=== PATIENT | male | born 1960 | race African-American/Black ===

== ENCOUNTER 2018-01-19 16:16 | Emergency (ER) | payer SELFPAY ==
[2018-01-19] MEDS ORDERED: Aspirin 325 MG TAB ONE (16:35)
[2018-01-19] MEDS ORDERED: Nitroglycerin 0.4 MG TAB (25 Tab Bottle) ONE (16:35)
[2018-01-19 16:55] LABS: ALT (SGPT) 23 U/L (8-55); AST (SGOT) 68 U/L (5-34); Albumin 4.4 g/dL (3.5-5.0); Alkaline Phosphatase 97 U/L (40-150); Anion Gap 15 mmol/L (10-20); BUN (Urea Nitrogen) 8 mg/dL (8.4-25.7); Bilirubin, Total 0.7 mg/dL (0.2-1.2); Calc. Creatinine Clearance 0 mL/min (70-130); Calcium 9.9 mg/dL (7.8-10.44); Carbon Dioxide 25 mmol/L (22-29); Chloride 100 mmol/L (98-107); Estimated GFR-MDRD Greater than 90; Globulin 3.9 g/dL (2.4-3.5); Glucose 144 mg/dL (70-105); Potassium 4.4 mmol/L (3.5-5.1); Protein, Total 8.3 g/dL (6.0-8.3); Sodium 136 mmol/L (136-145)
[2018-01-19 17:00] LABS: Eosinophils 3 % (0-10); Hemoglobin 14.8 g/dL (14.0-18.0); Lymphocytes 27 % (21-51); MDiff Complete? YES; Mean Corpuscular Hemoglobin 30.4 pg (27.0-31.0); Mean Corpuscular Volume 95.1 fL (78.0-98.0); Mean Platelet Volume 6.2 fL (7.4-10.4); Monocytes 10 % (0-10); Neutrophil 50 % (42-75); PLT Morphology Comment Appears Increased; Platelet Count 401 thou/uL (130-400); RBC Distribution Width 13.7 % (11.5-14.5); RBC Morphology Normal; Reactive Lymphocytes 10 % (0-10); Red Blood Cell (RBC) Count 4.87 mill/uL (4.70-6.10); White Blood Cell (WBC) Count 9.6 thou/uL (4.8-10.8)
[2018-01-19 17:03] LABS: CKMB 73.3 ng/mL (0-6.6); Troponin I 11.145 ng/mL (< 0.028)
[2018-01-19] MEDS ORDERED: Enoxaparin Sodium 60 MG/0.6 ML SYRINGE ONE (17:41)
[2018-01-19] MEDS ORDERED: Enoxaparin Sodium 30 MG/0.3 ML SYRINGE ONE (17:41)
--- NOTE | 2018-01-19 18:43 | RAD ---
TWO VIEWS OF THE CHEST: 01/19/18 COMPARISON: 01/15/11. HISTORY: Chest pain. FINDINGS: Two views of the chest show normal sized cardiomediastinal silhouette. There is no evidence of consol idation, mass, or pleural effusion. The bones are unremarkable. IMPRESSION: No evidence of acute cardiopulmonary disease. POS: [facility]
== END 2018-01-19 18:08 | disposition short-term general hospital (02) ==
LOC: MADERS 16:16
DX: I21.4 Non-ST elevation (NSTEMI) myocardial infarction (principal); E11.9 Type 2 diabetes mellitus without complications; E78.5 Hyperlipidemia, unspecified; F17.210 Nicotine dependence, cigarettes, uncomplicated; Z79.899 Other long term (current) drug therapy
CPT/HCPCS: 71046; 80053; 82553; 84484; 85025; 93005; 96372; J1650

== ENCOUNTER 2019-01-13 12:11 | Emergency (ER) | payer SELFPAY ==
[2019-01-13 14:13] LABS: #Basophils 0.1 thou/uL (0.0-0.2); #Eosinphils 0.5 thou/uL (0.0-0.7); #Lymphocytes 2.3 thou/uL (1.20-3.40); #Monocytes 0.5 thou/uL (0.11-0.59); #Neutrophils 2.2 thou/uL (1.40-6.50); %Basophils 1.7 % (0.0-1.0); %Eosinophils 9.3 % (0.0-10.0); %Lymphocytes 40.8 % (21.0-51.0); %Monocytes 8.6 % (0.0-10.0); %Neutrophils 39.7 % (42.0-75.0); Hemoglobin 14.4 g/dL (14.0-18.0); Mean Corpuscular HGB CONC 30.1 g/dL (32.0-36.0); Mean Corpuscular Hemoglobin 28.4 pg (27.0-31.0); Mean Corpuscular Volume 94.3 fL (78.0-98.0); Mean Platelet Volume 6.5 fL (7.4-10.4); Platelet Count 339 thou/uL (130-400); RBC Distribution Width 14.1 % (11.5-14.5); Red Blood Cell (RBC) Count 5.07 mill/uL (4.70-6.10); White Blood Cell (WBC) Count 5.6 thou/uL (4.8-10.8)
[2019-01-13] MEDS ORDERED: diphenhydrAMINE 50 MG/ML VIAL ONE (14:13)
[2019-01-13] MEDS ORDERED: Metoclopramide HCl 10 MG/2 ML VIAL ONE (14:13)
[2019-01-13 14:32] LABS: ALT (SGPT) 16 U/L (8-55); AST (SGOT) 15 U/L (5-34); Albumin 4.3 g/dL (3.5-5.0); Alkaline Phosphatase 94 U/L (40-110); Anion Gap 13 mmol/L (10-20); BUN (Urea Nitrogen) 8 mg/dL (8.4-25.7); Bilirubin, Total 0.5 mg/dL (0.2-1.2); Calc. Creatinine Clearance 0 mL/min (70-130); Calcium 9.6 mg/dL (7.8-10.44); Carbon Dioxide 26 mmol/L (22-29); Chloride 103 mmol/L (98-107); Estimated GFR-MDRD 86; Globulin 3.4 g/dL (2.4-3.5); Glucose 123 mg/dL (70-105); Potassium 4.3 mmol/L (3.5-5.1); Protein, Total 7.7 g/dL (6.0-8.3); Sodium 138 mmol/L (136-145)
--- NOTE | 2019-01-14 07:43 | CT ---
CT BRAIN NONCONTRAST: DATE: 01/13/2019 HISTORY: Severe nontraumatic headache in 58-year-old male. FINDINGS: There is no evidence of acute intra-axial or extra-axial hemorrhage. There is no midline shift or any other mass effect. There is no extra-axial fluid collection. There is no evidence of obstructive hydrocephalus. Calvarium is intact. IMPRESSION: No acute intracranial findings.
== END 2019-01-13 14:57 | disposition home or self-care (01) ==
LOC: MADERS 12:11
DX: G43.909 Migraine, unspecified, not intractable, without status migrainosus (principal); E11.9 Type 2 diabetes mellitus without complications; E78.5 Hyperlipidemia, unspecified; F17.210 Nicotine dependence, cigarettes, uncomplicated; Z79.84 Long term (current) use of oral hypoglycemic drugs; Z79.899 Other long term (current) drug therapy
CPT/HCPCS: 70450; 80053; 85025; 85610; 96374; 96375; J1200; J2765

== ENCOUNTER 2022-08-21 12:22 | Emergency (ER) | payer SELFPAY | END 2022-08-21 13:52 | disposition home or self-care (01) | LOC: MADERS 12:22 | DX: M25.512 Pain in left shoulder (principal); I10 Essential (primary) hypertension; E78.5 Hyperlipidemia, unspecified; F17.210 Nicotine dependence, cigarettes, uncomplicated; I25.10 Atherosclerotic heart disease of native coronary artery without angina pectoris; Z79.82 Long term (current) use of aspirin | CPT/HCPCS: 99283 ==

== ENCOUNTER 2022-08-21 14:03 | Emergency (ER) | payer SELFPAY | END 2022-08-21 15:14 | disposition home or self-care (01) | LOC: MADERS 14:03 | DX: S42.002A Fracture of unspecified part of left clavicle, initial encounter for closed fracture (principal); I10 Essential (primary) hypertension; E11.9 Type 2 diabetes mellitus without complications; E78.5 Hyperlipidemia, unspecified; F17.210 Nicotine dependence, cigarettes, uncomplicated; X50.0XXA Overexertion from strenuous movement or load, initial encounter; Z79.899 Other long term (current) drug therapy; Z79.82 Long term (current) use of aspirin ==

== ENCOUNTER 2023-11-16 07:41 | Emergency (ER) | payer MEDICARE, OTHER | END 2023-11-16 08:22 | disposition home or self-care (01) | LOC: MADERS 07:41 | DX: L50.9 Urticaria, unspecified (principal); I10 Essential (primary) hypertension; E11.9 Type 2 diabetes mellitus without complications; E78.5 Hyperlipidemia, unspecified; Z95.1 Presence of aortocoronary bypass graft; F17.210 Nicotine dependence, cigarettes, uncomplicated | CPT/HCPCS: 99283 ==

== ENCOUNTER 2023-12-27 10:42 | Emergency (ER) | payer MEDICARE | END 2023-12-27 12:39 | disposition home or self-care (01) | LOC: MADERS 10:42 | DX: J06.9 Acute upper respiratory infection, unspecified (principal); E11.9 Type 2 diabetes mellitus without complications; I10 Essential (primary) hypertension; E78.5 Hyperlipidemia, unspecified; F17.210 Nicotine dependence, cigarettes, uncomplicated | CPT/HCPCS: 71046 ==